=== PATIENT | male | born 1985 | race African-American/Black ===

== ENCOUNTER 2023-12-07 00:51 | Emergency (ER) | payer OTHER ==
[~2023-12-07] VITALS: Ht 182.9 cm; Wt 141.0 kg
[2023-12-07 01:06] VITALS: PULSE 74; TEMP 98.9; O2SAT 99
[2023-12-07 01:45] VITALS: BP 138/82; RESP 14
[2023-12-07] MEDS: LIDOCAINE 5% PATCH TOP SCH (01:45)
== END 2023-12-07 07:48 | disposition home or self-care (01) ==
LOC: ER 00:51
DX: M54.40 Lumbago with sciatica, unspecified side (principal)
CPT/HCPCS: 99283